=== PATIENT | male | born 1960 | race African-American/Black ===

== ENCOUNTER 2020-04-06 09:27 | Emergency (ER) | payer BC, SELFPAY ==
[2020-04-06] VITALS (29 sets, daily range): BP systolic 158–223; BP diastolic 96–132; PULSE 59–81; RESP 7–18; TEMP 36.2; O2SAT 98–100
--- NOTE | ~2020-04-06 | CT_ITS ---
EXAMINATION: CT abdomen pelvis w con DATE: 04/06/2020 14:08 INDICATION: Left lower quadrant abdominal pain. TECHNIQUE: Computed tomography (CT) of the abdomen and pelvis was performed with 100 mL Omnipaque 350 intravenous contrast. Automated exposure control and iterative reconstruction technique were employe d. The dose-length product was 633.53 mGy-cm. COMPARISON: None. FINDINGS: The visualized portions of the lung bases demonstrate mild atelectasis on the right. No ple ural effusion. The heart size is normal. There are coronary artery calcifications. No pericardial eff usion. The liver, gallbladder, spleen, pancreas, adrenal glands, and left kidney are normal. There is a 6 mm cyst in right kidney. There are scattered diverticula in the colon. There is mild fat strandi ng adjacent to sigmoid colon, consistent with diverticulitis. There are no dilated loops of bowel. Th e appendix is normal. There are no pathologically enlarged lymph nodes. There is no free intraperiton eal fluid. There is mild lumbar spondylosis. IMPRESSION: 1. Mild sigmoid diverticulitis. No perforation or abscess. Reviewed, dictated and finalized at location B.
[2020-04-06 09:47] LABS: Glucose Point of Care 124 (65-105)
--- NOTE | 2020-04-06 09:59 | ECG_ITS ---
Measurements Intervals [place] Rate: 59 P: 56 SD: 223 QRS: -15 QRSD: 111 T: 14 QT: 461 QTc: 460 Interpretive Statements SINUS BRADYCARDIA WITH FIRST DEGREE AV BLOCK INTRAVENTRICULAR CONDUCTION DELAY ABNORMAL ECG Electronically Signed On 04-06-2020 11:25:07 CDT by Heladio Pina D.O.
[2020-04-06 10:21] LABS: Basophils Percent Auto 0.6 % (0.2-1.2); Eosinophils Absolute Auto 0.1 K/mm3 (0-0.3); Hemoglobin 13.7 g/dL (14.0-18.0); Lymphocytes Percent Auto 35.5 % (18.3-44.2); Mean Corpuscular HGB Conc 31.9 g/dl (32-36); Mean Corpuscular Hemoglobin 26.9 pg (26-34); Mean Corpuscular Volume 84.5 fl (80-100); Mean Platelet Volume 9.5 fl (7.4-10.4); Monocytes Absolute Auto 0.3 K/mm3 (0.1-0.6); Monocytes Percent Auto 9.2 % (2.6-8.5); Neutrophils Absolute Auto 1.8 K/mm3 (1.3-6.7); Neutrophils Percent Auto 51.7 % (45.5-73.1); Platelet Count Result 201 k/mm3 (150-375); Red Blood Count 5.09 M/mm3 (4.6-6.20); Red Cell Distribution Width 13.5 % (11.5-14.5); White Blood Count 3.4 K/mm3 (4.5-10.0)
[2020-04-06 10:34] LABS: Alanine Aminotransferase 19 U/L (4-50); Albumin Level 4.5 g/dL (3.5-5.1); Alkaline Phosphatase 51 U/L (38-126); Anion Gap 9 mmol/L (8-16); Aspartate Amino Transferase 26 U/L (17-59); Bilirubin,Total 0.4 mg/dL (0.2-1.3); Blood Urea Nitrogen 17 mg/dL (9-20); Calcium 9.1 mg/dL (8.4-10.2); Carbon Dioxide 29 mmol/L (22-30); Chloride 105 mmol/L (98-107); Estimated CRCL calculation 51 ml/min; Estimated Glomerular Filt Rate > 60; Glucose 121 mg/dL (75-110); Potassium 4.2 mmol/L (3.4-5.0); Sodium 143 mmol/L (137-145)
[2020-04-06 10:52] LABS: Add Urine Microscopic? YES; Appearance Urine Clear (Clear); Bilirubin Urine Negative (Negative); Blood Urine Negative (Negative); Color Urine Yellow (Yellow); Glucose Urine UA Negative (Negative); Ketones Urine Negative (Negative); Leukocyte Esterase Ur Negative LEU/UL (Negative); Mucus Urine Rare /lpf; Nitrate Urine Negative (Negative); Protein Urine 1+ mg/dL (Negative); RBC Urine 0-2 /hpf (0-2); Specific Grav Ur 1.029 (1.001-1.035); Urobilinogen Urine Negative mg/dL (<2.0); WBC Urine 0-3 /hpf
--- NOTE | 2020-04-06 11:04 | ED.RECABL ---
HPI - Recheck/Abnormal Lab/Rx General Chief Complaint: Recheck/Abnormal Lab/Rx <Gena Kothari PA-C - Last Filed: 04/06/20 14:52> Stated Complaint: elevated bp <Gena Kothari PA-C - Last Filed: 04/06/20 14:52> Time Seen by Provider: 04/06/20 10:53 <Gena Kothari PA-C - Last Filed: 04/06/20 14:52> Source: patient <Gena Kothari PA-C - Last Filed: 04/06/20 14:52> Mode of arrival: ambulatory <MAX Bradley Last Filed: 04/06/20 14:52> Limitations: no limitations <Gena Kothari PA-C - Last Filed: 04/06/20 14:52> History of Present Illness HPI narrative: This is a 59-year-old male that presents to the emergency department for hypertension. 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 He denies having any symptoms currently. Reports he had been on amlodipine for his blood pressure for a long time. But the last month he is only been taking eplerenone for his blood pressure as that was what his horticultural agent recommended. He has not been monitoring his blood pressure at home. Denies chest pain, shortness of breath, lower extremity edema, or headache. <Gena Kothari PA-C - Last Filed: 04/06/20 14:52> Related Data Home Medications: Home Medications Medication Instructions Recorded Confirmed eplerenone mg 04/06/20 metformin mg PO 04/06/20 <MAX Bradley Last Filed: 04/06/20 14:52> Allergies/Adverse Reactions: Allergies Allergy/AdvReac Type Severity Reaction Status Date / Time No Known Allergies Allergy Unverified 03/11/18 09:20 <MAX Bradley Last Filed: 04/06/20 14:52> Review of Systems Review of Systems: Narrative: CONSTITUTIONAL: Denies fever EYES: Denies visual changes CARDIOVASCULAR: Denies chest pain, or edema. RESPIRATORY: Denies dyspnea. NEUROLOGIC: Denies headache, numbness, or weakness. <Gena Kothari PA-C - Last Filed: 04/06/20 14:52> All systems reviewed & are unremarkable except as noted in HPI and below <Gena Kothari PA-C - Last Filed: 04/06/20 14:52> [facility] Past Medical History Medical History: Medical History (Updated 04/06/20 @ 14:49 by Gena Kothari PA-C) History of diabetes mellitus History of hypertension <Gena Kothari PA-C - Last Filed: 04/06/20 14:52> Social History Social History: Social History Gender identity (if verbalized by the patient): Male <Gena Kothari PA-C - Last Filed: 04/06/20 14:52> Exam Narrative: Exam Narrative: GENERAL: Well-appearing, well-nourished, and in no acute distress. HEAD: Normocephalic, atraumatic. EYES: EOMI. NECK: Supple. No adenopathy or masses. No carotid bruits or JVD CHEST: Clear to auscultation. No respiratory distress. No wheezes rales or rhonchi HEART: Regular rate and rhythm. No murmur heard. Normal peripheral pulses. EXTREMITIES: Normal range of motion. No edema. SKIN: Warm, dry, no rash. NEURO: No focal deficits. Alert and oriented x3. PSYCH: Normal mood and affect <Gena Kothari PA-C - Last Filed: 04/06/20 14:52> Course Consultations Consultation #1: Spoke with patient's primary about work-up who would like patient to be restarted on amlodipine and will follow-up in clinic <Gena Kothari PA-C - Last Filed: 04/06/20 14:52> Date: 04/06/20 <Gena Kothari PA-C - Last Filed: 04/06/20 14:52> Time: 14:46 <Gena Kothari PA-C - Last Filed: 04/06/20 14:52> Vital Signs Vital signs: Vital Signs Temperature 97.2 F L 04/06/20 09:37 Pulse Rate 66 04/06/20 09:37 Respiratory Rate 18 04/06/20 09:37 Blood Pressure 213/132 H 04/06/20 09:37 Pulse Oximetry 99 04/06/20 09:37 Temperature 97.2 F L 04/06/20 09:37 Pulse Rate 67 04/06/20 14:59 Respiratory Rate 18 04/06/20 14:59 Blood Pressure 184/99 H 04/06/20 14:59 Pulse Oximetry 99 /
[2020-04-06] MEDS: hydrALAZINE HCL 20 MG/ML VIAL IV PUSH (11:06)
[2020-04-06] MEDS: LABETALOL HCL INJ 100 MG/20 ML VIAL 20 MG IV PUSH (12:28)
--- NOTE | 2020-04-06 14:12 | PC.NURSE ---
Patient back from CT. Call light within reach.
== END 2020-04-06 15:00 | disposition home or self-care (01) ==
PROVIDERS: Emergency Provider General Practice; PCP Internal Medicine
DX: K57.32 Diverticulitis of large intestine without perforation or abscess without bleeding (principal); I10 Essential (primary) hypertension; E11.9 Type 2 diabetes mellitus without complications; Z79.84 Long term (current) use of oral hypoglycemic drugs
CPT/HCPCS: 36415; 74177; 80053; 81001; 85025; 93005; 96374; 96375; 99284; J0360; Q9967

== ENCOUNTER 2021-03-06 19:19 | Emergency (ER) | payer BC, SELFPAY ==
--- NOTE | 2021-03-06 19:26 | PC.NURSE ---
Was never seen by this nurse. Left from registration. Did not want his insurance charged. Was upset when he realized registration could see that he had insurance from a previous visit
== END 2021-03-06 19:48 | disposition left against medical advice (07) ==
PROVIDERS: Emergency Provider Emergency Medicine
DX: Z53.21 Procedure and treatment not carried out due to patient leaving prior to being seen by health care provider (principal)
CPT/HCPCS: 99199

== ENCOUNTER 2023-02-19 08:35 | Outpatient (CLI) | payer BC, SELFPAY ==
--- NOTE | 2023-02-19 | EST_ITS ---
Patient Info Name: Franky Paige Age: 62 years : 1960 Gender: Male Ht: 70 in Wt: 200 lbs BSA: 2.14 m2 Exam Date: 02/19/2023 9:03 AM Exam Location: [facility] Stress Patient Status: Outpatient Admit Date: 02/19/2023 Staff Ordering Physician: Lexx, Robert VERDIN Attending Provider: Lexx, Robert VERDIN Exercise Technologist: Anabel Adam [facility] Nurse: MISA MAURICIO NP Exam Type: CA stress test treadmill Study Info Indications R07.9 - Chest pain, unspecified A treadmill exercise stress test was performed. Summary 1. Negative stress test for ischemia. 2. Frequent PVCs at rest which resolved with exercise, a favorable respons. 3. Resting hypertension, 155/96 mmHg, with a hypertensive blood pressure response to exercise reaching 209/107 mmHg. Protocol: [facility] ECG Details Stage: REST Duration (min): 1 min : 22 sec Speed (mph): 0.0 Grade (%): 0 HR (bpm): 71 SBP (mmHg): 155 DBP (mmHg): 96 METS: --- Stage: REST Duration (min): 6 min : 52 sec Speed (mph): 0.0 Grade (%): 0 HR (bpm): 90 SBP (mmHg): 155 DBP (mmHg): 96 METS: --- Stage: STAGE 1 Duration (min): 1 min : 0 sec Speed (mph): 1.7 Grade (%): 10 HR (bpm): 99 SBP (mmHg): 155 DBP (mmHg): 96 METS: --- Stage: STAGE 1 Duration (min): 2 min : 0 sec Speed (mph): 1.7 Grade (%): 10 HR (bpm): 109 SBP (mmHg): 155 DBP (mmHg): 96 METS: --- Stage: STAGE 1 Duration (min): 3 min : 0 sec Speed (mph): 1.7 Grade (%): 10 HR (bpm): 110 SBP (mmHg): 193 DBP (mmHg): 100 METS: --- Stage: STAGE 2 Duration (min): 1 min : 0 sec Speed (mph): 2.5 Grade (%): 12 HR (bpm): 118 SBP (mmHg): 193 DBP (mmHg): 100 METS: --- Stage: STAGE 2 Duration (min): 2 min : 0 sec Speed (mph): 2.5 Grade (%): 12 HR (bpm): 120 SBP (mmHg): 193 DBP (mmHg): 97 METS: --- Stage: STAGE 2 Duration (min): 3 min : 0 sec Speed (mph): 2.5 Grade (%): 12 HR (bpm): 121 SBP (mmHg): 193 DBP (mmHg): 97 METS: --- Stage: STAGE 3 Duration (min): 1 min : 0 sec Speed (mph): 3.4 Grade (%): 14 HR (bpm): 127 SBP (mmHg): 192 DBP (mmHg): 90 METS: --- Stage: STAGE 3 Duration (min): 2 min : 0 sec Speed (mph): 3.4 Grade (%): 14 HR (bpm): 130 SBP (mmHg): 192 DBP (mmHg): 90 METS: --- Stage: STAGE 3 Duration (min): 2 min : 59 sec Speed (mph): 3.4 Grade (%): 14 HR (bpm): 134 SBP (mmHg): 209 DBP (mmHg): 107 METS: --- Stage: RECOVERY Duration (min): 1 min : 0 sec Speed (mph): 0.0 Grade (%): 0 HR (bpm): 121 SBP (mmHg): 198 DBP (mmHg): 105 METS: --- Stage: RECOVERY Duration (min): 2 min : 0 sec Speed (mph): 0.0 Grade (%): 0 HR (bpm): 106 SBP (mmHg): 198 DBP (mmHg): 105 METS: --- Stage: RECOVERY Duration (min): 3 min : 0 sec Speed (mph): 0.0 Grade (%): 0 HR (bpm): 105 SBP (mmHg):
== END 2023-02-19 08:36 | disposition home or self-care (01) ==
PROVIDERS: PCP Internal Medicine; Visit Provider Internal Medicine
DX: R07.9 Chest pain, unspecified (principal)
CPT/HCPCS: 93017